=== PATIENT | female | born 1990 | race Caucasian/White ===

== ENCOUNTER 2021-02-07 19:30 | Outpatient (CLI) | payer OTHER | END 2021-02-07 19:31 | disposition home or self-care (01) | LOC: SLEEPLAB 19:30 | PROVIDERS: ATTEND Nurse Practitioner Acute Care | DX: G47.9 Sleep disorder, unspecified (principal); G47.33 Obstructive sleep apnea (adult) (pediatric); R53.83 Other fatigue; R06.83 Snoring; G47.10 Hypersomnia, unspecified; G43.909 Migraine, unspecified, not intractable, without status migrainosus; G47.00 Insomnia, unspecified; Z90.89 Acquired absence of other organs | CPT/HCPCS: 95810 ==

== ENCOUNTER 2021-04-27 19:00 | Outpatient (CLI) | payer OTHER | END 2021-04-27 19:01 | disposition home or self-care (01) | LOC: SLEEPLAB 19:00 | PROVIDERS: ATTEND Nurse Practitioner Acute Care | DX: G47.33 Obstructive sleep apnea (adult) (pediatric) (principal); R06.83 Snoring; G47.10 Hypersomnia, unspecified; E66.9 Obesity, unspecified; Z68.37 Body mass index [BMI] 37.0-37.9, adult | CPT/HCPCS: 95811 ==